=== PATIENT | female | born 1945 | race Caucasian/White ===

== ENCOUNTER 2017-03-23 11:14 | Emergency (ER) | payer OTHER ==
[~2017-03-23] VITALS: Ht 152.4 cm; Wt 59.4 kg
[2017-03-23 13:02] LABS: UA SPECIFIC GRAVITY <=1.005 (1.005-1.035)
[2017-03-23 13:03] LABS: microscopic required? YES
[2017-03-23 13:04] LABS: urine erythrocyte 1+ (NEGATIVE)
[2017-03-23 14:58] VITALS: BP 153/81
== END 2017-03-23 15:10 | disposition home or self-care (01) ==
LOC: ED 11:14
PROVIDERS: Emergency Medicine Emergency Medical Services
DX: M51.36 Other intervertebral disc degeneration, lumbar region (principal); I10 Essential (primary) hypertension; E11.9 Type 2 diabetes mellitus without complications; E78.00 Pure hypercholesterolemia, unspecified; M81.0 Age-related osteoporosis without current pathological fracture; Z79.84 Long term (current) use of oral hypoglycemic drugs

== ENCOUNTER 2017-04-03 20:36 | Emergency (ER) | payer OTHER ==
[2017-04-04 00:31] LABS: BASOPHIL % 0.2 % (0-2); PLATELET COUNT 251 x10^3mcL (130-400); RED CELL DISTRIBUTION WIDTH 13.1 % (11.5-14.5)
[2017-04-04 00:46] LABS: CALCIUM 9.4 mg/dL (8.5-10.1); CARBON DIOXIDE 25.9 mmol/L (21-32); CHLORIDE SERUM 102 mmol/L (98-107); CREATININE SERUM 0.8 mg/dL (0.6-1.0); GLUCOSE SERUM 159 mg/dL (74-106); POTASSIUM SERUM 5.1 mmol/L (3.5-5.1); SODIUM SERUM 138 mmol/L (136-145)
[2017-04-04 00:52] LABS: ALBUMIN 4.2 g/dL (3.4-5.0); ALKALINE PHOSPHATASE 70 U/L (46-116); ALT/SGPT 22 U/L (14-59); AMYLASE 67 U/L (25-115); AST/SGOT 20 U/L (15-37); BILIRUBIN TOTAL 0.4 mg/dL (0.20-1.00); LIPASE 190 IU/L (73-393)
[2017-04-04 00:54] LABS: TOTAL PROTEIN, SERUM 8.3 g/dL (6.4-8.2)
[2017-04-04 01:32] LABS: UA SPECIFIC GRAVITY >=1.030 (1.005-1.035); microscopic required? YES; urine erythrocyte 2+ (NEGATIVE)
[2017-04-04 03:40] VITALS: BP 135/84
== END 2017-04-04 03:40 | disposition home or self-care (01) ==
LOC: ED 20:36
PROVIDERS: Emergency Medicine
DX: R10.9 Unspecified abdominal pain (principal); K59.00 Constipation, unspecified; I10 Essential (primary) hypertension; E11.9 Type 2 diabetes mellitus without complications; E78.00 Pure hypercholesterolemia, unspecified; M81.0 Age-related osteoporosis without current pathological fracture; Z79.899 Other long term (current) drug therapy
CPT/HCPCS: 36415; Q0092

== ENCOUNTER 2017-11-27 15:12 | Emergency (ER) | payer OTHER ==
[~2017-11-27] VITALS: Ht 149.9 cm; Wt 58.5 kg
[2017-11-27 15:25] VITALS: Ht 149.9 cm; Wt 58.5 kg
[2017-11-27 17:51] VITALS: BP 142/92
== END 2017-11-27 17:51 | disposition home or self-care (01) ==
LOC: ED 15:12
DX: M54.42 Lumbago with sciatica, left side (principal); I10 Essential (primary) hypertension; E11.9 Type 2 diabetes mellitus without complications; Z88.8 Allergy status to other drugs, medicaments and biological substances
CPT/HCPCS: 82962; J1885